=== PATIENT | male | born 1965 | race American Indian/Alaskan Native ===

== ENCOUNTER 2021-12-05 14:21 | Emergency (ER) | payer OTHER ==
[2021-12-05] MEDS ORDERED: ACETAMINOPHEN 500 MG TAB PO ONE (18:54)
[2021-12-05] MEDS ORDERED: IBUPROFEN 600 MG TAB PO ONE (18:54)
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
[2021-12-05 20:38] VITALS: BP 136/84
== END 2021-12-05 20:38 | disposition home or self-care (01) ==
LOC: ED 14:21
DX: S63.653A Sprain of metacarpophalangeal joint of left middle finger, initial encounter (principal); M62.830 Muscle spasm of back; V89.2XXA Person injured in unspecified motor-vehicle accident, traffic, initial encounter; Y93.89 Activity, other specified; Y92.89 Other specified places as the place of occurrence of the external cause; Y99.8 Other external cause status
CPT/HCPCS: 72100; 99283